=== PATIENT | male | born 1995 | race Caucasian/White ===

== ENCOUNTER 2021-04-27 17:07 | Emergency (ER) | payer OTHER ==
[~2021-04-27] VITALS: Ht 182.9 cm; Wt 80.0 kg
[2021-04-27] MEDS ORDERED: PANT-47 PO (19:04)
--- NOTE | 2021-04-27 19:23 | NUR ---
PT PRESCRIBED PREDNISONE AND AMOXICLLIN ABOUT 2 MONTHS AGO WITH NO REIEF OF SINUS SYMPTOMS.
[2021-04-27 20:05] VITALS: BP 142/88
== END 2021-04-27 20:08 | disposition home or self-care (01) ==
LOC: ER 17:09
DX: K21.9 Gastro-esophageal reflux disease without esophagitis (principal); Z79.899 Other long term (current) drug therapy
CPT/HCPCS: 71045; 99283

== ENCOUNTER 2023-12-14 16:05 | Emergency (ER) | payer MEDICAID, SELFPAY ==
[~2023-12-14] VITALS: Ht 182.9 cm; Wt 114.4 kg
[~2023-12-14 16:05] MED LIST: PANT-47 PO
[2023-12-14 16:49] VITALS: BP 155/105; PULSE 93; RESP 20; TEMP 99.2; O2SAT 99
[2023-12-14] MEDS ORDERED: HYDR-3965 PO (17:12)
[2023-12-14] MEDS ORDERED: CLIN-97 PO (17:12)
== END 2023-12-14 17:31 | disposition home or self-care (01) ==
LOC: ER 16:05
DX: K08.89 Other specified disorders of teeth and supporting structures (principal); Z79.899 Other long term (current) drug therapy
CPT/HCPCS: 99283